=== PATIENT | female | born 1980 | race Caucasian/White ===

== ENCOUNTER 2020-09-28 13:39 | Outpatient (REF) | payer SELFPAY ==
[2020-09-29 11:02] LABS: COVID-19 RT-PCR UVMMC Result Negative (Negative)
== END 2020-09-28 13:59 ==
LOC: LBO 13:39
PROVIDERS: Visit Provider Family Medicine
DX: Z11.59 Encounter for screening for other viral diseases (principal)
CPT/HCPCS: U0003